=== PATIENT | female | born 1975 | race Hispanic/Latino ===

== ENCOUNTER → 2016-12-31 | Day surgery (SDC) | payer OTHER ==
--- NOTE | 2016-12-30 17:10 | History & Physical Pre-Op ---
General Information and HPI History of Present Illness: Keshia is a 41-year-old female with a long-standing was complaining of bilateral heel pain. Patient is undergone an extended course of conservative care, including shoe gear and activity modification, rest, immobilization and courses of NSAIDs. None of this is yielded her any significant relief. The patient presents today for preoperative surgical consultation. Allergies/Medications Allergies: Coded Allergies: No Known Allergies (12/27/16) Past History Surgical History Pertinent Surgical History: non-contributory Review of Systems Review of Systems: Review of systems unremarkable except noted history of present illness Exam & Diagnostic Data Physical Exam: Lungs clear bilaterally. Heart sounds rate and rhythm regular. Lower extremity physical exam demonstrates intact pedal pulses bilaterally. Pulses dorsalis pedis and posterior tibial arteries are palpable bilaterally. Patient without any sensory motor deficits. Deep tendon reflexes grossly intact. Patient noted assuming pain with palpation the plantar medial aspect of the left and right heels. There is a negative Tinel sign noted with percussion the posterior tibial nerve. Ankle range of motion noted to be diminished securely in dorsiflexion. This noted to improve with flexion of the knee. Assessment/Plan Assessment/Plan: Chronic plantar fascial Chao bilaterally with gastrocnemius equinus. A lengthy discussion reviewing both surgical and conservative options held the patient at bedside and the patient elects to go forward with surgery despite the risks. As Ranked By This Provider Problem List: 1. Plantar fascial fibromatosis Attending MD Review Statement Attending Statement Attending MD Statement: examined this patient
[~2016-12-31] VITALS: Ht 154.9 cm; Wt 81.6 kg
--- NOTE | 2016-12-31 10:57 | Operative Report ---
Operative/Inv Procedure Report Surgery Date: 12/31/16 Name of Procedure: 1 gastrocnemius recession right 2 gastrocnemius recession left 3 plantar fasciotomy right 4 plantar fasciotomy left Pre-Operative Diagnosis: 1 gastrocnemius equinus right 2 gastrocnemius equinus left 3 chronic plantar fasciosis right 4 chronic plantar fasciosis left Post-Operative Diagnosis: Same Estimated Blood Loss: scant Surgeon/Registered Nurse Renal: NIKOS CANDELARIO DPM Anesthesia: moderate sedation, block Operative/Procedure Note Note: After obtaining informed consent the patient was brought to the operating room and placed on the operating table in supine position. The patient isn't securely fastened to the operating table utilizing safety belt. After administration of IV sedation, 10 mL of 0.5% Marcaine plain was obtained about the patient's left and right ankles. 2 well-padded calf tourniquets were placed about the patient's left and right upper cast. 2 g of Ancef were delivered intravenously times one dose. The left and right lower extremity is within scrubbed prepped and draped in usual aseptic manner. The right lower extremity was elevated to examine to limb, which point the calf tourniquet was inflated 250 mmHg. Attention directed distal medial leg where a linear incision was made 2 fingerbreadths distal to the medial have a gastrocnemius muscle. Skin was signed 15 blade and deepened subtenons tissues. Dissection was then carried down to the medial margin of the gastroc fascia. An interval was developed between the peritenon and the gastroc fascia. The sural nerve was identified protected. A gastrocnemius recession was then performed. The deep tissues reapproximated 4-0 Vicryl and the skin edges reprepped with 4-0 nylon. Attention directed to distal foot, where a grid pattern was marked out at 5 mm intervals overlying the area of greatest tenderness. A 60 K wire was utilized to develop portals and the fascia was then ablated with the [place] device utilizing 4 W of energy. Next the skin was incised and the dissection was carried to the medial margin of the plantar fascia which was released from its origin at the plantar calcaneal tuberosity. The deep tissues reports a 4-0 Vicryl and the skin is reprepped for nylon. Incision was then dressed with Xeroform [place] dressings and Coban. The right lower extremity tourniquet was deflated and the left lower extremity was elevated to examine to limb, which point the calf tourniquet was inflated 250 mmHg. Attention directed distal medial left leg where a linear incision was made 2 fingerbreadths distal to the medial have a gastrocnemius muscle. Skin incised 15 blade and deepened subtenons tissues. The dissection was then carried down to the medial margin of the gastroc fascia where an interval was developed between the peritenon the gastroc fascia. The sural nerve was identified and protected. A gastrocnemius recession was then performed. The deep tissues reapproximated 4-0 Vicryl and the skin is reprepped for nylon. Attention was then directed distal medial foot , where a grid pattern was marked out in portals were developed with sterile 60 K wire. The fashion was then ablated utilizing the Xencor device with 4 its of radiofrequency energy. The dissection was then carried down to the medial margin of the plantar fascial which was released from the medial tubercle calcaneal tuberosity. The deep tissues reports a 4-0 Vicryl skin edges reprepped for nylon. The incisions were then dressed with Xeroform [place] dressings and Coban. The patient was noted to tolerate both procedure and anesthesia well and the patient was transported from the operating room to recovery by sent stable best assess intact all digits bilateral feet.
== END ==
LOC: STS 01:15 → EDBD 07:00
DX: M21.6X2 Other acquired deformities of left foot (principal); M21.6X1 Other acquired deformities of right foot; M72.2 Plantar fascial fibromatosis
CPT/HCPCS: J0690; J2001; J2250

== ENCOUNTER → 2018-05-12 | Day surgery (SDC) | payer OTHER ==
--- NOTE | 2018-05-10 11:57 | History & Physical Pre-Op ---
General Information and HPI History of Present Illness: Keshia is a 42-year-old female with a long-standing and worsening complaint of a painful heel spur left foot. The patient has undergone an extended course of conservative care, including shoe gear and activity modification, rest, immobilization and courses of NSAIDs. None of this is yielded her any significant leg. The patient presents today for preoperative surgical consultation. The patient was referred to our office from Barry Tidwell DPM. Allergies/Medications Allergies: Coded Allergies: No Known Allergies (05/08/18) Home Med list Acetaminophen (Extra Strength Non-Aspirin) 500 MG TABLET 2 TAB PO PRN PAIN ( Reported) Past History Surgical History Pertinent Surgical History: non-contributory Review of Systems Review of Systems: Unremarkable except for that noted in history of present illness Exam & Diagnostic Data Physical Exam: Lungs clear bilaterally. Heart sounds rate and rhythm regular. Lower extremity physical exam demonstrates intact pedal pulses bilaterally. Pulses dorsalis pedis and posterior tibial arteries are palpable bilaterally. Patient without any sensory motor deficits. Deep tendon reflexes grossly intact. Patient noted to have same and pain with palpation to the plantar medial aspect of the left foot. Assessment/Plan Assessment/Plan: Painful heels. Left foot. A lengthy discussion reviewing both surgical and conservative options was held the patient at bedside and the patient elected to go forward with surgery despite the risks. As Ranked By This Provider Problem List: 1. Calcaneal spur of left foot Attending MD Review Statement Attending Statement Attending MD Statement: examined this patient
[~2018-05-12] VITALS: Ht 154.9 cm; Wt 85.7 kg
[~2018-05-12] MED LIST: EXTRA STRENGTH500 MG PO
--- NOTE | 2018-05-12 08:11 | Operative Report ---
Operative/Inv Procedure Report Surgery Date: 05/12/18 Name of Procedure: 1 excision of heel spur left foot Pre-Operative Diagnosis: 1 painful and enlarging heel spur left foot Post-Operative Diagnosis: The same Estimated Blood Loss: scant Surgeon/Archivist Political History: Carol RUBIO,Leo Tidwell DPM Anesthesia: moderate sedation, block Operative/Procedure Note Note: After obtaining informed consent the patient was brought to the operating room and placed on the operating table in the supine position. The patient was then securely fastened to the operating table utilizing safety belt. After administration of IV sedation, 10 mL of 0.5% Marcaine plain was infiltrated about the patient's left ankle. Well-padded ankle tourniquet was placed about the patient's left lower extremity. 2 g of Ancef were delivered intravenously times one dose. The left foot and ankle within scrubbed, prepped and draped in usual aseptic manner. The left lower extremity was elevated to examine to limb, which point the ankle tourniquet inflated 250 mmHg. Attention directed to the medial aspect the left heel, where a 3 cm linear incision was made at the junction the dorsal plantar skin. Dissection was then carried down to the medial margin of the plantar fascia, which was released from its origin on the medial tubercle calcaneal tuberosity. A rongeur was utilized to smooth the bone spur. A bone rasp was used to take down any rough edges. The open wound was then irrigated with copious amounts normal sterile saline. The deep tissues reapproximated 3-0 Vicryl. The skin edges reapproximated 3-0 nylon. 1 mL of dexamethasone was infiltrated into the wound site and the incision was dressed with Xeroform, 4 x 4's, Kerlix and an Desmond wrap. The patient was noted tolerate both procedure and anesthesia well and the patient was transported from the operating room to recovery with vital signs stable best assess intact all digits left foot.
== END ==
LOC: STS 01:10
DX: M77.32 Calcaneal spur, left foot (principal); M79.672 Pain in left foot
CPT/HCPCS: J0690; J1100; J2001; J2250; J3490